=== PATIENT | male | born 1990 | race Caucasian/White ===

== ENCOUNTER 2024-07-31 10:00 | Inpatient (IN) | payer OTHER ==
[2024-07-31 10:39] VITALS: BMI 26.9
[2024-07-31] MEDS ORDERED: BENZONATATE 200 MG CAPSULE PO PRN (10:55)
[2024-07-31] MEDS ORDERED: ACETAMINOPHEN 325 MG TABLET (FP) PO PRN (10:55)
[2024-07-31] MEDS ORDERED: guaiFENesin 600 MG TABLET.ER (FP) PO PRN (10:55)
[2024-07-31] MEDS ORDERED: BENZOCAINE/MENTHOL (CHLORASEPTIC ) LOZENGE MM PRN (10:55)
[2024-07-31] MEDS ORDERED: POLYETHYLENE GLYCOL (HEALTHYLAX) 3350 17 GM PACKET PO PRN (10:55)
[2024-07-31] MEDS ORDERED: IBUPROFEN 400 MG TABLET (FP) PO PRN (10:55)
[2024-07-31] MEDS ORDERED: IBUPROFEN 600 MG TABLET (FP) PO PRN (10:55)
[2024-07-31] MEDS: TUBERCULIN PPD 5 TU/0.1ML VIAL ID ONE (12:40)
[2024-07-31] MEDS: MELATONIN 5 MG TABLETS PO SCH (21:32)
[2024-07-31] MEDS: THIAMINE 100 MG TABLET PO SCH (21:32)
[2024-07-31] MEDS: hydrOXYzine PAMOATE 25 MG CAPSULE (FP) PO PRN (21:32)
[2024-08-01] MEDS: PRENATAL VITAMINS W/ FOLIC ACID TABLET (FP) PO SCH (09:32)
[2024-08-01 13:20] LABS: HEMATOCRIT 43.8 % (35.4-49); HEMOGLOBIN 14.9 GM/dL (11.7-16.9); MCH 31.9 pg (25.7-33.7); MEAN CELL VOLUME 93.8 fl (80-96); MEAN PLT VOLUME 9.3 fl (7.5-11.1); PLATELET COUNT 216 10^3/uL (134-434); RBC 4.66 M/mm3 (4.00-5.60); RDW 13.6 % (11.9-15.9); WHITE BLOOD COUNT 9.8 K/mm3 (4.0-10.0)
[2024-08-01 14:11] LABS: POTASSIUM 3.7 mmol/L (3.5-5.1)
[2024-08-01 14:17] LABS: CALCIUM 8.9 mg/dL (8.5-10.1)
[2024-08-01 14:18] LABS: BLOOD UREA NITROGEN 13.8 mg/dL (7-18)
[2024-08-01 14:22] LABS: BILIRUBIN,TOTAL 0.7 mg/dL (0.2-1)
[2024-08-01 14:23] LABS: TOT PROT 6.5 g/dl (6.4-8.2)
[2024-08-01 14:24] LABS: ALBUMIN 3.3 g/dl (3.4-5.0)
[2024-08-01] MEDS: SUVOREXANT 10 MG TABLET PO PRN (21:04)
[2024-08-03 12:13] LABS: URINE APPEARANCE CLEAR; URINE BILIRUBIN NEGATIVE (NEGATIVE); URINE COLOR YELLOW; URINE GLUCOSE (UA) NEGATIVE (NEGATIVE); URINE KETONE NEGATIVE (NEGATIVE); URINE LEUK ESTERASE NEGATIVE (NEGATIVE); URINE NITRITE NEGATIVE (NEGATIVE); URINE PROTEIN NEGATIVE (NEGATIVE); URINE UROBILINOGEN 0.2 mg/dL (0.2-1.0)
[2024-08-03] MEDS ORDERED: SUVOREXANT 10 MG TABLET PO PRN (22:00)
[2024-08-04] MEDS: NICOTINE POLACRILEX 2 MG LOZENGE BC PRN (12:28)
[2024-08-04] MEDS: SUVOREXANT 10 MG TABLET PO PRN (21:09)
[2024-08-05] MEDS: hydrOXYzine PAMOATE 50 MG CAPSULE (FP) PO PRN (00:44)
[2024-08-06] MEDS: ACAMPROSATE CALCIUM 333 MG TABLET.DR PO SCH (13:20)
[2024-08-06] MEDS: SUVOREXANT 10 MG TABLET PO PRN (21:31)
[2024-08-08] MEDS: NICOTINE POLACRILEX 2 MG GUM BUC PRN (19:05)
[2024-08-09] MEDS: SUVOREXANT 15 MG TABLET PO PRN (22:45)
[2024-08-10] MEDS: HYDROCORTISONE 0.5% TOPICAL CREAM 30 GM TUBE TP ONE (14:23)
[2024-08-11] MEDS ORDERED: SUVOREXANT 10 MG TABLET PO PRN (22:00)
[2024-08-12] MEDS: SUVOREXANT 15 MG TABLET PO PRN (22:37)
[2024-08-13] MEDS: MAG HYDROX/AL HYDROX/SIMETH 30 ML UNIT-DOSE CUP PO PRN (00:35)
[2024-08-13] MEDS: SUVOREXANT 15 MG TABLET PO PRN (21:39)
[2024-08-16] MEDS ORDERED: SUVOREXANT 10 MG TABLET PO PRN (22:00)
[2024-08-16] MEDS: SUVOREXANT 15 MG TABLET PO PRN (22:10)
[2024-08-18] MEDS: MAGNESIUM HYDROX 2400MG/30ML ORAL SUSPENSION 30 ML CUP PO PRN (09:37)
[2024-08-19] MEDS: LOPERAMIDE HCL 2 MG CAPSULE PO PRN (16:29)
[2024-08-20] MEDS: SUVOREXANT 5 MG TABLET PO PRN (21:32)
[2024-08-21 06:47] VITALS: BP 143/82; PULSE 85; RESP 17; TEMP 97.5
[2024-08-21] MEDS: NALOXONE (NYS OPIOID OVERDOSE PROGRAM) 4 MG/0.1 ML SPRAY NS SCH (15:05)
[2024-08-21] MEDS ORDERED: SUVOREXANT 15 MG TABLET PO PRN (22:00)
== END 2024-08-21 15:09 | disposition home or self-care (01) | DRG 772 ==
LOC: YASAS 10:00 → Y3W 11:55
PROVIDERS: ADMIT Psychiatry & Neurology Pain Medicine; ATTEND Psychiatry & Neurology Pain Medicine
PROC: HZ42ZZZ Group Counseling for Substance Abuse Treatment, Cognitive-Behavioral (ICD-10-PCS; principal; 2024-07-30)
DX: F10.20 Alcohol dependence, uncomplicated (principal); F12.20 Cannabis dependence, uncomplicated; F17.210 Nicotine dependence, cigarettes, uncomplicated; F41.9 Anxiety disorder, unspecified; L25.9 Unspecified contact dermatitis, unspecified cause
CPT/HCPCS: 36415; 80053; 80305; 80307; 81003; 85027; 86780; 87811; 93005; 93010